=== PATIENT | female | born 2005 | race African-American/Black ===

== ENCOUNTER 2024-03-19 21:26 | Emergency (ER) | payer MEDICAID, SELFPAY ==
[2024-03-19] MEDS ORDERED: Boostrix 0.5 ML (Tdap) VIAL (>/=7 yrs of age) ONE (21:48)
== END 2024-03-19 22:39 | disposition home or self-care (01) ==
LOC: CSHERS 21:26
DX: S61.211A Laceration without foreign body of left index finger without damage to nail, initial encounter (principal); W26.0XXA Contact with knife, initial encounter; Y93.89 Activity, other specified; Y92.000 Kitchen of unspecified non-institutional (private) residence as the place of occurrence of the external cause; Z23 Encounter for immunization
CPT/HCPCS: 12001; 90471; 90715

== ENCOUNTER 2025-05-15 12:58 | Emergency (ER) | payer OTHER, SELFPAY ==
[2025-05-15] MEDS ORDERED: Lidocaine 1% (PF) 30 ML VIAL ONE (13:29)
== END 2025-05-15 14:05 | disposition home or self-care (01) ==
LOC: CSHERS 12:58
DX: L73.2 Hidradenitis suppurativa (principal)
CPT/HCPCS: 10060; 90471; 90715; J2003